=== PATIENT | female | born 1940 | race Caucasian/White ===

== ENCOUNTER → 2017-07-25 | Outpatient (CLI) | payer OTHER | LOC: RAD 09:23 | DX: Z12.31 Encounter for screening mammogram for malignant neoplasm of breast (principal) ==

== ENCOUNTER → 2018-08-02 | Outpatient (CLI) | payer OTHER ==
[~2018-08-02] VITALS: Ht 160 cm; Wt 56.7 kg
[~2018-08-02] MED LIST: ALDACTONE50 MG PO; COZAAR100 MG PO; HAIR, SKIN AND1 EAC2 PO; PROTONIX40 M1 PO; RANITIDINE HCL300 M1 PO; SYNTHROID75 MCG PO; VENLAFAXINE HC150 M1 PO; VITAMIN D1000 UNI1 PO; WELCHOL 625 MG625 MG PO; ZETIA10 MG PO
--- NOTE | 2018-08-05 15:05 | PATH ---
[facility] [address] [place] [address] PATHOLOGY RPT PROCEDURE Name: PRICILA LEAL Room #: REG JOHNNY Nguyen.#: [id number] ������������������ Admission: 08/02/18 ������������������ Date of : 36 Discharge: Report #: [id number] Path Case #: [id number] [facility] Accession Number: [id number] . 01 Material submitted: . BX GASTRITIS R/O H PYLORI . 01 Clinical history: . Pre-OP DX: HX: GERD, dysphagia Post-OP DX: Gastritis, dysphagia . 02 Diagnosis: Gastric mucosa, gastritis rule out H. pylori, endoscopic biopsy: - Mild reactive gastropathy. - Negative for intestinal metaplasia or atrophy. - Negative for Helicobacter pylori (properly controlled immunohistochemical stain performed). (IUV:shipping clerk packing; 08/05/2018) MBR/08/05/2018 . 02 Electronically signed: . Kavitha Rodriguez MD, Pathologist NPI- [id number] . 01 Gross description: . Received in formalin labeled "Pricila Leal, BX gastritis, rule out H. pylori," are 5 segments of murguia soft tissue measuring 1.3 x 0.8 x 0.2 cm in aggregate dimensions and ranging from 0.2 to 0.7 cm in maximum dimension. The specimen is submitted entirely in cassette A1. (TSD; 08/02/2018) TOB/TOB . 02 Pathologist provided ICD-10: K31.9 . 02 CPT . 424317, O13902 Specimen Comment: A courtesy copy of this report has been sent to Specimen Comment: [phone], . Specimen Comment: Report sent to / DR BUNCH Specimen Comment: A duplicate report has been generated due to demographic updates. Performed at: [address] [id number] MD Som Andres MD Phone: [phone] Performed at: [address] [id number] PATHOLOGY RPT PROCEDURE Name: PRICILA LEAL Room #: REG [facility] M.Siobhan.#: [id number] ������������������ Admission: 08/02/18 ������������������ Date of : 36 Discharge: Report #: [id number] Path Case #: [id number] [address] [id number] MD Kavitha Rodriguez MD Phone: [phone]
--- NOTE | 2018-08-05 17:56 | P ---
[facility] [place] [address] PROCEDURE REPORT Name: MEHUL LEAL Room #: REG [facility]#: [id number] Admission: 08/02/18 ������������������ Attend Phys: Grady Buenrostro MD Discharge: ������������������ Date of : 38 Report #: [id number] THIS REPORT FOR: //name// CC: LAURA Santoyo BRIEF HISTORY: The patient is an 78-year-old woman known to me with history of a chronic cough and reflux disease. She had a Danielito fundoplication a number of years ago and reports that many years she did well with essentially resolution of the cough. However, she now has developed cough on a daily basis. It is nonproductive. She does feel regurgitation at times of gastric contents into her chest and she also has had episodes of chest pain, has been seen by Dr. Bruner and multiple evaluations have been nondiagnostic per her report. She also has some vague sensation of food "not going down." PREOPERATIVE DIAGNOSES: 1. Atypical chest pain. 2. Esophageal regurgitation. 3. Mild dysphagia. POSTOPERATIVE DIAGNOSES: 1. Moderate chronic-appearing gastritis. 2. Surgical changes consistent with Danielito fundoplication. 3. Dysphagia. MEDICATIONS: Deep sedation with propofol per anesthesia. SPECIMEN: Biopsies of gastritis. ESTIMATED BLOOD LOSS: 3 mL. PROCEDURE: EGD with biopsy. FINDINGS: Prior to propofol sedation, procedure of upper endoscopy discussed with the patient as well as potential risks and its complications. She indicates she understands and desires to proceed. DESCRIPTION OF PROCEDURE: With the patient in the lateral decubitus position, the Olympus video endoscope was inserted in the cervical esophagus under direct vision without difficulty. Examination of this organ through its entire length revealed normal esophageal mucosa down the squamocolumnar junction. Squamocolumnar junction was inspected and noted to be unremarkable. There was no evidence of a hiatus hernia, esophagitis or High mucosa. Scope was advanced into the stomach, was examined on end view as well as retroflexed views. There was a diffuse-appearing gastritis with erythema throughout the [facility] [address] [place] [address] PROCEDURE REPORT Name: MELMEHULKARIE BLUE Room #: REG [facility].#: [id number] Admission: 08/02/18 ������������������ Attend Phys: Grady Buenrostro MD Discharge: ������������������ Date of : 38 Report #: [id number] antrum and a very subtle nodular pattern to the mucosa and body of the stomach. Multiple biopsies were obtained. No ulcers were seen. There were no retained solids or liquids in the stomach. There is a questionable history of a leiomyoma on some documentation. However, I cannot find any record on previous endoscopy reports of a leiomyoma. I presume that is an erroneous report. In addition, no submucosal lesions were seen on examination of her stomach today. The pylorus, duodenal bulb and postbulbar duodenal sweep were inspected and noted to be unremarkable. At that point, the scope was slowly withdrawn and careful circumferential views confirmed the above findings. The patient tolerated the procedure well. Following the procedure, the patient was dilated with passage of 50 Malin dilator. There was no resistance. CONDITION OF THE PATIENT UPON DISCHARGE: Following the procedure, the patient drowsy, aroused, conversant and will be discharged to home when fully ambulatory. INSTRUCTIONS TO THE PATIENT AND FAMILY AT THE TIME OF DISCHARGE: We will follow up on biopsies obtained today. The patient is currently using pantoprazole 40 mg twice daily. We will have her increase to 40 mg twice daily for a 2-month trial and see me in followup in the office. The Danielito appears to be intact. I do not see evidence of esophagitis. Her symptoms are somewhat vague and at times difficult to follow up. She was also empirically dilated as noted above. She will also continue ranitidine 300 mg at bedtime. We will monitor her symptoms of regurgitation and cough and chest pain. ��������������������������������������������� <ELECTRONICALLY SIGNED> ���������������������������������������� By: Grady Buenrostro MD ��������������������������������������������� 08/05/18 [id number] Grady Buenrostro MD /nt
== END | disposition home or self-care (01) ==
LOC: GI 06:53
DX: K31.9 Disease of stomach and duodenum, unspecified (principal); R13.19 Other dysphagia; G62.9 Polyneuropathy, unspecified; I10 Essential (primary) hypertension; E78.00 Pure hypercholesterolemia, unspecified; Z87.19 Personal history of other diseases of the digestive system; Z98.890 Other specified postprocedural states; Z96.653 Presence of artificial knee joint, bilateral; Z98.41 Cataract extraction status, right eye; Z98.42 Cataract extraction status, left eye; Z96.642 Presence of left artificial hip joint; Z79.899 Other long term (current) drug therapy; Z88.2 Allergy status to sulfonamides
CPT/HCPCS: 62110; 62900

== ENCOUNTER → 2018-09-06 | Outpatient (CLI) | payer OTHER | LOC: RAD 09:27 | DX: Z12.31 Encounter for screening mammogram for malignant neoplasm of breast (principal) ==

== ENCOUNTER → 2018-09-13 | Outpatient (CLI) | payer OTHER | LOC: ULTRA | DX: N63.11 Unspecified lump in the right breast, upper outer quadrant (principal); N64.89 Other specified disorders of breast ==

== ENCOUNTER → 2018-09-17 | Outpatient (CLI) | payer OTHER | LOC: MRI | DX: M25.462 Effusion, left knee (principal); M71.22 Synovial cyst of popliteal space [Baker], left knee; Z96.652 Presence of left artificial knee joint ==

== ENCOUNTER → 2018-09-27 | Outpatient (CLI) | payer OTHER ==
--- NOTE | 2018-10-01 12:06 | PATH ---
[facility] [address] [place] [address] PATHOLOGY RPT PROCEDURE Name: MELPRICILA K Room #: REG JOHNNY Nguyen.#: [id number] ������������������ Admission: 09/27/18 ������������������ Date of : 36 Discharge: Report #: [id number] Path Case #: [id number] [facility] Accession Number: [id number] . 01 Material submitted: . breast - RT BREAST MASS 9:00, 3 CM. Modifiers: right, 9:00, 3 CM . 01 Clinical history: . Rt breast mass . 02 Diagnosis: Breast, right breast mass 9:00, 3 cm from nipple, needle core biopsy: - Proliferative fibrocystic changes with dilated ducts, apocrine metaplasia, columnar cell change, columnar cell hyperplasia, and sclerosing adenosis. Negative for atypia or malignancy. (IUV:pit 09/30/2018) QTP/09/30/2018 . 02 Comment: Dr. Magda Akins has seen international sales representative slides of this case and concurs with my diagnosis. (IUV:pit 09/30/2018) . . 02 Electronically signed: . Kavitha Rodriguez MD, Pathologist NPI- [id number] . 01 Gross description: . The specimen is received in formalin, labeled "Pricila Leal, Rt breast 9:00 3 cm" and consists of 3 needle cores of yellow-murguia fibroadipose tissue measuring between 1.8 cm and 2.0 cm in length and 0.4 cm each in diameter. They are entirely submitted in A1-A2. The specimen was collected at 9:20 AM on 09/27/2018 and placed in formalin at 9:20 AM. The cold ischemic time is less than 1 minute and the total formalin fixation time is greater than 6 hours but less than 72 hours. (SDY; 09/27/2018) SYU/SYU . 02 Pathologist provided ICD-10: N60.11, N60.91, N60.31 . 02 CPT . 716127 Specimen Comment: A courtesy copy of this report has been sent to Specimen Comment: [phone], [place] [address] PATHOLOGY RPT PROCEDURE Name: PRICILA LEAL Room #: REG CLGabi Conway#: [id number] ������������������ Admission: 09/27/18 ������������������ Date of : 36 Discharge: Report #: [id number] Path Case #: [id number] Specimen Comment: Report sent to / DR BUNCH Performed at: [address], [place], [place] [id number] MD Som Andres MD Phone: [phone] Performed at: [address], [place], [place] [id number] MD Kavitha Rodriguez MD Phone: [phone]
== END | disposition home or self-care (01) ==
LOC: ULTRA 08:37
DX: N60.91 Unspecified benign mammary dysplasia of right breast (principal); N60.31 Fibrosclerosis of right breast; Z88.2 Allergy status to sulfonamides; Z79.899 Other long term (current) drug therapy; Z98.890 Other specified postprocedural states

== ENCOUNTER → 2019-04-08 | Outpatient (CLI) | payer OTHER | LOC: RAD 08:13 | DX: R92.2 Inconclusive mammogram (principal) ==

== ENCOUNTER → 2019-10-14 | Outpatient (CLI) | payer OTHER | LOC: BC 08:13 | DX: Z12.31 Encounter for screening mammogram for malignant neoplasm of breast (principal) ==

== ENCOUNTER → 2020-04-21 | Outpatient (CLI) | payer OTHER | LOC: SJCVC 11:08 | PROVIDERS: ATTEND Internal Medicine Cardiovascular Disease | DX: R07.9 Chest pain, unspecified (principal); I10 Essential (primary) hypertension; E78.00 Pure hypercholesterolemia, unspecified; K21.00 Gastro-esophageal reflux disease with esophagitis, without bleeding; E78.1 Pure hyperglyceridemia; Z86.79 Personal history of other diseases of the circulatory system; Z79.82 Long term (current) use of aspirin; Z79.899 Other long term (current) drug therapy ==

== ENCOUNTER → 2020-05-27 | Outpatient (CLI) | payer OTHER | LOC: SJCVCIMAG 09:31 | PROVIDERS: ATTEND Internal Medicine Cardiovascular Disease | DX: R07.9 Chest pain, unspecified (principal); I10 Essential (primary) hypertension; E78.00 Pure hypercholesterolemia, unspecified; Z79.899 Other long term (current) drug therapy; Z86.79 Personal history of other diseases of the circulatory system ==

== ENCOUNTER → 2020-10-22 | Outpatient (CLI) | payer OTHER | LOC: BC 09:14 | PROVIDERS: ATTEND Family Medicine | DX: Z12.31 Encounter for screening mammogram for malignant neoplasm of breast (principal); N64.89 Other specified disorders of breast ==

== ENCOUNTER → 2021-01-26 | Outpatient (CLI) | payer OTHER | LOC: SJCVC 10:15 | PROVIDERS: ATTEND Internal Medicine Cardiovascular Disease | DX: R00.0 Tachycardia, unspecified (principal); I49.3 Ventricular premature depolarization; I10 Essential (primary) hypertension; E78.00 Pure hypercholesterolemia, unspecified; K21.9 Gastro-esophageal reflux disease without esophagitis; E03.9 Hypothyroidism, unspecified; I25.10 Atherosclerotic heart disease of native coronary artery without angina pectoris; Z86.79 Personal history of other diseases of the circulatory system; Z79.899 Other long term (current) drug therapy; Z88.2 Allergy status to sulfonamides ==